=== PATIENT | female | born 1965 | race Two or more races ===

== ENCOUNTER 2018-06-20 14:16 | Outpatient (CLI) | payer OTHER | END 2018-06-20 14:23 | disposition home or self-care (01) | LOC: RAD 501 14:16 | DX: M46.06 Spinal enthesopathy, lumbar region (principal) ==

== ENCOUNTER → 2019-06-21 | Outpatient (CLI) | payer OTHER | END | disposition home or self-care (01) | LOC: RAD 15:29 | DX: M54.2 Cervicalgia (principal); M54.5 Low back pain; M70.61 Trochanteric bursitis, right hip ==

== ENCOUNTER 2022-12-09 16:14 | Outpatient (CLI) | payer OTHER | END 2022-12-09 16:29 | disposition home or self-care (01) | LOC: RAD 16:14 | PROVIDERS: ATTEND Specialist | DX: M16.11 Unilateral primary osteoarthritis, right hip (principal); M79.621 Pain in right upper arm ==

== ENCOUNTER 2024-09-20 14:19 | Outpatient (CLI) | payer OTHER | END 2024-09-20 14:30 | disposition home or self-care (01) | LOC: RAD 14:19 | DX: M54.2 Cervicalgia (principal); M54.50 Low back pain, unspecified ==

== ENCOUNTER 2025-09-24 10:46 | Outpatient (CLI) | payer OTHER | END 2025-09-24 10:53 | disposition home or self-care (01) | LOC: MAMO-SONO 10:46 | DX: Z12.31 Encounter for screening mammogram for malignant neoplasm of breast (principal) ==